=== PATIENT | female | born 1995 | race Two or more races ===

== ENCOUNTER 2023-11-19 03:32 | Emergency (ER) | payer OTHER ==
[~2023-11-19] VITALS: Ht 157.5 cm; Wt 66.0 kg
[2023-11-19 03:51] VITALS: BP 161/90; PULSE 106; RESP 18; TEMP 98.5
[2023-11-19] MEDS ORDERED: ACETAMINOPHEN 500 MG TABLET PO ONE (04:00)
== END 2023-11-19 05:27 | disposition left against medical advice (07) ==
LOC: EMS 03:32
DX: S00.83XA Contusion of other part of head, initial encounter (principal); X58.XXXA Exposure to other specified factors, initial encounter; Y93.89 Activity, other specified; Y92.89 Other specified places as the place of occurrence of the external cause; Y99.8 Other external cause status
CPT/HCPCS: 99282; Z7502; Z7610

== ENCOUNTER 2024-01-19 23:46 | Emergency (ER) | payer OTHER ==
[~2024-01-19] VITALS: Ht 152.4 cm; Wt 56.8 kg
[2024-01-20 00:06] VITALS: TEMP 97.9
[2024-01-20 01:01] LABS: ANION GAP 8 mmol/L (8-16); CALCIUM, TOTAL 8.8 mg/dL (8.8-10.5); CARBON DIOXIDE 27 mmol/L (22-29); CHLORIDE 105 mmol/L (98-107); CREATININE 0.72 mg/dL (0.60-1.30); GLOMERULAR FILTR. RATE CALC > 60 mL/min (>60); GLUCOSE,RANDOM 118 mg/dL (70-110); POTASSIUM 3.4 mmol/L (3.5-5.1); SODIUM SERUM 140 mmol/L (136-145); UREA NITROGEN, BLOOD 13 mg/dL (7-18)
[2024-01-20 01:11] LABS: ALCOHOL, BLOOD (SERUM) 267 mg/dL (0-10)
[2024-01-20 01:18] LABS: BASOPHILS % (AUTO) 0.7 % (0.0-2.0); EOSINOPHILS % (AUTO) 0.5 % (1.0-6.0); HEMATOCRIT 39.5 % (36-46); HEMOGLOBIN 13.2 g/dL (12.0-16.0); MEAN CORPUSCULAR HEMOGLOBIN 30.7 pg (26.0-34.0); MEAN CORPUSCULAR HGB CONC 33.5 G/dL (31.0-37.0); MEAN CORPUSCULAR VOLUME 92 fL (80-100); MONOCYTES # (AUTO) 0.4 K/uL (0.1-1.0); MONOCYTES % (AUTO) 5.5 % (2.0-9.0); NEUTROPHILS # (AUTO) 4.6 K/uL (1.8-7.7); NEUTROPHILS % (AUTO) 65.3 % (40.0-70.0); PLATELET COUNT (AUTO) 387 K/uL (150-450); RED CELL DISTRIBUTION WIDTH 13.5 % (11.5-14.5); WHITE BLOOD COUNT (AUTO) 7.1 K/uL (4.5-11.0)
[2024-01-20 06:18] VITALS: BP 130/78; PULSE 88; RESP 20
== END 2024-01-20 06:21 | disposition home or self-care (01) ==
LOC: EMS 23:47
DX: F10.129 Alcohol abuse with intoxication, unspecified (principal); Y90.9 Presence of alcohol in blood, level not specified
CPT/HCPCS: 99291; 80048; 85025; 36415; G0480

== ENCOUNTER 2024-05-13 00:38 | Emergency (ER) | payer OTHER ==
[~2024-05-13] VITALS: Ht 157.5 cm; Wt 65.0 kg
[2024-05-13 00:53] VITALS: TEMP 98.3
[2024-05-13] MEDS: IBUPROFEN 600 MG TABLET PO ONE (01:45)
[2024-05-13] MEDS: HYDROCODONE/ACETAMINOPHEN 5-325 MG TABLET PO ONE (01:45)
[2024-05-13] MEDS: CEPHALEXIN MONOHYDRATE 500 MG CAPSULE PO ONE (01:45)
[2024-05-13] MEDS: DOXYCYCLINE HYCLATE 100 MG TABLET PO ONE (01:45)
[2024-05-13] MEDS ORDERED: CEPH-558 PO (03:35)
[2024-05-13] MEDS ORDERED: HYDR-4062 PO (03:35)
[2024-05-13] MEDS ORDERED: DOXY-354 PO (03:35)
[2024-05-13] MEDS ORDERED: IBUP-1554 PO (03:35)
[2024-05-13 03:45] VITALS: BP 124/68; PULSE 96; RESP 18
== END 2024-05-13 04:10 | disposition home or self-care (01) ==
LOC: EMS 00:38
DX: L02.01 Cutaneous abscess of face (principal)
CPT/HCPCS: 10060; 99284; Z7502; Z7610

== ENCOUNTER 2024-09-28 21:03 | Emergency (ER) | payer OTHER ==
[~2024-09-28] VITALS: Ht 157.5 cm; Wt 68.2 kg
[~2024-09-28 21:03] MED LIST: CEPH-558 PO; DOXY-354 PO; HYDR-4062 PO; IBUP-1554 PO
[2024-09-28 21:30] LABS: COVID AG,FIA SOURCE NASAL SWAB
[2024-09-28 21:37] LABS: APPEARANCE,URINE CLEAR (CLEAR); BILIRUBIN,URINE NEGATIVE (NEGATIVE); COLOR,URINE COLORLESS (YELLOW); GLUCOSE, URINE (UA) NEGATIVE (NEGATIVE); KETONES,URINE NEGATIVE (NEGATIVE); LEUKOCYTE ESTERASE ,URINE NEGATIVE (NEGATIVE); NITRATE,URINE NEGATIVE (NEGATIVE); PH,URINE 6.5 (5.0-8.0); PROTEIN,URINE NEGATIVE (NEGATIVE); UROBILINOGEN,URINE <=1.0 mg/dL (<=1.0)
[2024-09-28 21:47] LABS: OCCULT BLOOD,URINE NEGATIVE (NEGATIVE)
[2024-09-28 21:55] LABS: INFLUENZA TYPE A NEGATIVE FOR TYPE A (NEGATIVE); INFLUENZA TYPE B NEGATIVE FOR TYPE B (NEGATIVE); SARS-COV2 (COVID) ANTIGEN,FIA Negative (Negative)
[2024-09-28 21:55] LABS: BASOPHILS % (AUTO) 0.2 % (0.0-2.0); EOSINOPHILS % (AUTO) 0.8 % (1.0-6.0); HEMATOCRIT 39.7 % (36-46); HEMOGLOBIN 13.2 g/dL (12.0-16.0); LYMPHOCYTES # (AUTO) 0.8 K/uL (1.0-4.8); LYMPHOCYTES % (AUTO) 11.5 % (22.0-44.0); MEAN CORPUSCULAR HEMOGLOBIN 30.5 pg (26.0-34.0); MEAN CORPUSCULAR HGB CONC 33.2 G/dL (31.0-37.0); MEAN CORPUSCULAR VOLUME 92 fL (80-100); MONOCYTES # (AUTO) 0.8 K/uL (0.1-1.0); MONOCYTES % (AUTO) 11.5 % (2.0-9.0); NEUTROPHILS # (AUTO) 5.5 K/uL (1.8-7.7); PLATELET COUNT (AUTO) 332 K/uL (150-450); RED BLOOD CELL COUNT(AUTO) 4.33 MIL/uL (4.00-5.20); RED CELL DISTRIBUTION WIDTH 12.5 % (11.5-14.5); WHITE BLOOD COUNT (AUTO) 7.2 K/uL (4.5-11.0)
[2024-09-28 22:04] LABS: ANION GAP 4 mmol/L (8-16); CALCIUM, TOTAL 8.8 mg/dL (8.8-10.5); CARBON DIOXIDE 29 mmol/L (22-29); CHLORIDE 100 mmol/L (98-107); CREATININE 0.74 mg/dL (0.60-1.30); GLOMERULAR FILTR. RATE CALC > 60 mL/min (>60); GLUCOSE,RANDOM 105 mg/dL (70-110); POTASSIUM 4.1 mmol/L (3.5-5.1); SODIUM SERUM 133 mmol/L (136-145); UREA NITROGEN, BLOOD 12 mg/dL (7-18)
[2024-09-29] VITALS: TEMP 97.3
[2024-09-29] MEDS: ONDANSETRON 4 MG TABLET PO ONE (00:21)
[2024-09-29 01:10] VITALS: BP 119/68; PULSE 70; RESP 16; O2SAT 98
== END 2024-09-29 01:29 | disposition home or self-care (01) ==
LOC: EMS 21:03
DX: R11.2 Nausea with vomiting, unspecified (principal); Z20.822 Contact with and (suspected) exposure to COVID-19
CPT/HCPCS: 99283; 87426; 80048; 81003; 84703; 85025; 87804; 36415; Q0162